=== PATIENT | male | born 1940 | race Caucasian/White ===

== ENCOUNTER 2018-12-22 18:14 | Emergency (ER) | payer MEDICARE, OTHER ==
[2018-12-22 18:42] LABS: ABS Basophils 0.1 10^3/ul (0-0.2); ABS Eosinophils 0.6 10^3/ul (0-0.6); ABS Lymphocytes 2.1 10^3/ul (1.0-4.8); Eosinophil % 6.5 %; Hematocrit 40 % (42-52); Hemoglobin 13.1 g/dL (14.0-18.0); Lymphocyte % 23.5 %; Mean Corpuscular HGB Conc 33 g/dL (31-36); Mean Corpuscular Hemoglobin 32 pg (27-31); Mean Corpuscular Volume 96 fL (80-94); Mean Platelet Volume 8.3 fL (7.4-10.4); Nucleated Red Blood Cells % 0.1; Platelet Count 287 10^3/uL (150-450); Red Blood Count 4.13 10^6 /uL (4.18-5.48); Red Cell Distribution Width 15 % (10-15); White Blood Count 8.8 10^3/uL (3.5-10.8)
--- OUTSIDE RECORDS SUMMARY | 2018-12-22 18:52 | XMS REPORT | Continuity of Care Document ---
:1940 External Reference #:[id number] Demographics Phone Unavailable Preferred Language Unknown Marital Status Unknown Jehovah'S Witness Affiliation Unknown Race Unknown Ethnic Group Unknown Author Name Bill Pyle M.D. (transmitted by agent of provider Mary Perla ) Address [address] [place] [address] [place] [address] Problems Description No Information Available Social History Type Date Description Comments Sex Unknown Allergies, Adverse Reactions, Alerts Description No Information Available Medications Description No Information Available Immunizations Description No Information Available Vital Signs Description No Information Available Results Description No Information Available Procedures Description No Information Available Medical Devices Description No Information Available Encounters Description No Information Available Assessments Description No Information Available Plan of Treatment No Information Available Functional Status Description No Information Available Mental Status Description No Information Available Referrals Description No Information Available
[2018-12-22 18:57] LABS: Albumin 3.7 g/dL (3.2-5.2); Calcium 8.8 mg/dL (8.6-10.3); Magnesium 1.7 mg/dL (1.9-2.7); Potassium 3.8 mmol/L (3.5-5.0); Total Bilirubin 0.6 mg/dL (0.2-1.0)
[2018-12-22 19:03] LABS: BUN/Creatinine Ratio 15.1 (8-20); EGFR African American 53.7 (>60); EGFR Non-African American 44.3 (>60); Globulin 3.6 g/dL (2-4); Total Protein 7.3 g/dL (6.4-8.9)
[2018-12-22 19:04] LABS: Troponin I 0.01 ng/mL (<0.04)
[2018-12-22] MEDS ORDERED: NS 0.9% 500 ML* 500 ML IV ONE (19:10)
[2018-12-22 19:28] LABS: TSH (Thyroid Stimulating Horm) 2.34 mcIU/mL (0.34-5.60)
[2018-12-22 21:23] LABS: Urine Appearance Clear; Urine Bilirubin Negative (Negative); Urine Blood Negative (Negative); Urine Color Yellow; Urine Glucose Negative (Negative); Urine Ketones Negative (Negative); Urine Nitrite Negative (Negative); Urine Protein Negative (Negative); Urine Specific Gravity 1.009 (1.010-1.030); Urine Urobilinogen Negative (Negative)
--- NOTE | 2018-12-22 22:14 | ED ---
Syncope/Near Syncope - HPI Summary HPI Summary: This patient is a 78 year old M arriving via ambulance to [facility] accompanied by with a chief complaint of syncope with LOC since 1734. Patient states that he was getting his blood drawn at Dr. David's office when he looked at the needle and passed out. Patient states that he experienced LOC. The patient rates the pain 0/10 in severity. Symptoms aggravated by nothing. Symptoms alleviated by nothing. Patient denies CP, melena and fever. Allergies Allergy/AdvReac Type Severity Reaction Status Date / Time No Known Allergies Allergy Verified 12/22/18 18:18 Home Medications Medication Instructions Recorded Confirmed Type Acetaminophen TAB* [Tylenol TAB*] 650 mg PO Q6H PRN tab 11/19/18 12/22/18 Rx Apixaban* [Eliquis*] 10 mg PO BID #71 tab 11/19/18 12/22/18 Rx Hydrochlorothiazide TAB* 25 mg PO DAILY 12/22/18 12/22/18 History [Hydrodiuril TAB*] Metoprolol Succinate XL TAB* 50 mg PO DAILY 12/22/18 12/22/18 History [Toprol XL TAB*] Patient Problems Acute pulmonary embolism (Acute) Community acquired bacterial pneumonia (Acute) DVT prophylaxis (Acute) Deep vein thrombosis (Acute) Fatigue (Acute) Full code status (Acute) HTN (hypertension) (Acute) Procedures Procedure Code Date COLONOSCOPY 45.23 10/24/99 - History Of Current Complaint Chief Complaint: EDSyncope Time Seen by Provider: 12/22/18 18:19 Hx Obtained From: Patient Onset/Duration: Sudden Onset Timing: Seconds Context: Witnessed, Loss Of Consciousness Activity At Onset: Other - Blood drawing Associated Head Trauma: No Aggravating Factor(s): Nothing Alleviating Factor(s): Nothing - Allergies/Home Medications Allergies/Adverse Reactions: Allergies Allergy/AdvReac Type Severity Reaction Status Date / Time No Known Allergies Allergy Verified 12/22/18 18:18 Home Medications: Home Medications Hydrochlorothiazide TAB* [Hydrodiuril TAB*] 25 mg PO DAILY 12/22/18 [History Confirmed 12/22/18] Metoprolol Succinate XL TAB* [Toprol XL TAB*] 50 mg PO DAILY 12/22/18 [History Confirmed 12/22/18] PMH/Surg Hx/FS Hx/Imm Hx Endocrine/Hematology History: Denies: Hx Diabetes Cardiovascular History: Reports: Hx Hypertension History: Denies: Hx Renal Disease Musculoskeletal History: 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 Sensory History: Denies: Hx Contacts or Glasses, Hx Legally Blind, Hx Deafness, Hx Hearing Aid Opthamlomology History: Denies: Hx Contacts or Glasses, Hx Legally Blind - Surgical History Surgical History: Yes Surgery Procedure, Year, and Place: colonoscopy Infectious Disease History: No Infectious Disease History: Denies: Traveled Outside the [place] in Last 30 Days - Family History Known Family History: Positive: Hypertension - Social History Alcohol Use: Weekly Hx Substance Use: No Substance Use Type: Reports: None Hx Tobacco Use: No Smoking Status (MU): Never Smoked Tobacco Review of Systems Negative: Fever Negative: Chest Pain Negative: Other - melena All Other Systems Reviewed And Are Negative: Yes Physical Exam - Summary Physical Exam Summary: Constitutional: Well-developed, Well-nourished, Alert. (-) Distressed Skin: Warm, Dry HENT: Normocephalic; Atraumatic Eyes: Conjunctiva normal Neck: Musculoskeletal ROM normal neck. (-) JVD, (-) Stridor, (-) Tracheal deviation Cardio: Rhythm regular, rate normal, Heart sounds normal; Intact distal pulses; The pedal pulses are 2+ and symmetric. Radial pulses are 2+ and symmetric. (-) Murmur Pulmonary/Chest wall: Effort normal. (-) Respiratory distress, (-) Wheezes, (-) Rales Abd: Soft, (-) tenderness, (-) Distension, (-) Guarding, (-) Rebound Musculoskeletal: (-) Edema Lymph: (-) Cervical adenopathy Neuro: Alert, Oriented x3 Psych: Mood and affect Normal Triage Information Reviewed: Yes Vital Signs On Initial Exam: Initial Vitals Temp Pulse Resp BP Pulse Ox 97.3 F 80 14 150/59 100 12/22/18 18:15 12/22/18 18:15 12/22/18 18:15 12/22/18 18:15 12/22/18 18:15 Vital Signs Reviewed: Yes Diagnostics - Vital Signs Vital Signs Temp Pulse Resp BP Pulse Ox 12/22/18 19:00 70 16 170/111 98 12/22/18 18:44 42 23 170/87 100 12/22/18 18:28 15 12/22/18 18:15 97.3 F 80 14 150/59 100 - Laboratory Lab Results: Lab Results 12/22/18 12/22/18 12/22/18 Range/Units 18:37 18:37 18:37 WBC 8.8 (3.5-10.8) 10^3/uL RBC 4.13 L (4.18-5.48) 10^6 /uL Hgb 13.1 L (14.0-18.0) g/dL Hct 40 L (42-52) % MCV 96 H (80-94) fL MCH 32 H (27-31) pg MCHC 33 (31-36) g/dL RDW 15 (10-15) % Plt Count 287 (150-450) 10^3/uL MPV 8.3 (7.4-10.4) fL Neut % (Auto) 57.2 % Lymph % (Auto) 23.5 % [place] % (Auto) 11.5 % Eos % (Auto) 6.5 % Baso % (Auto) 1.3 % Absolute Neuts (auto) 5.0 (1.5-7.7) 10^3/ul Absolute Lymphs (auto) 2.1 (1.0-4.8) 10^3/ul Absolute Monos (auto) 1.0 H (0-0.8) 10^3/ul Absolute Eos (auto) 0.6 (0-0.6) 10^3/ul Absolute Basos (auto) 0.1 (0-0.2) 10^3/ul Absolute Nucleated RBC 0.0 10^3/ul Nucleated RBC % 0.1 Sodium 139 (135-145) mmol/L Potassium 3.8 (3.5-5.0) mmol/L Chloride 107 (101-111) mmol/L Carbon Dioxide 23 (22-32) mmol/L Anion Gap 9 (2-11) mmol/L BUN 23 (6-24) mg/dL Creatinine 1.52 H (0.67-1.17) mg/dL Est GFR ( Amer) 53.7 (>60) Est GFR (Non-Af Amer) 44.3 (>60) BUN/Creatinine Ratio 15.1 (8-20) Glucose 101 H (70-100) mg/dL Lactic Acid 2.1 H* (0.5-2.0) mmol/L Calcium 8.8 (8.6-10.3) mg/dL Magnesium 1.7 L (1.9-2.7) mg/dL Total Bilirubin 0.60 (0.2-1.0) mg/dL AST 21 (13-39) U/L ALT 15 (7-52) U/L Alkaline Phosphatase 80 (34-104) U/L Troponin I 0.01 (<0.04) ng/mL Total Protein 7.3 (6.4-8.9) g/dL Albumin 3.7 (3.2-5.2) g/dL Globulin 3.6 (2-4) g/dL Albumin/Globulin Ratio 1.0 (1-3) TSH 2.34 (0.34-5.60) mcIU/mL Urine Color Urine Appearance Urine pH (5-9) Ur Specific [place] (1.010-1.030) Urine Protein (Negative) Urine Ketones (Negative) Urine Blood (Negative) Urine Nitrate (Negative) Urine Bilirubin (Negative) Urine Urobilinogen (Negative) Ur Leukocyte Esterase (Negative) Urine Glucose (Negative) 12/22/18 12/22/18 Range/Units 21:08 21:37 WBC (3.5-10.8) 10^3/uL RBC (4.18-5.48) 10^6 /uL Hgb (14.0-18.0) g/dL Hct (42-52) % MCV (80-94) fL MCH (27-31) pg MCHC (31-36) g/dL RDW (10-15) % Plt Count (150-450) 10^3/uL MPV (7.4-10.4) fL Neut % (Auto) % Lymph % (Auto) % [place] % (Auto) % Eos % (Auto) % Baso % (Auto) % Absolute Neuts (auto) (1.5-7.7) 10^3/ul Absolute Lymphs (auto) (1.0-4.8) 10^3/ul Absolute Monos (auto) (0-0.8) 10^3/ul Absolute Eos (auto) (0-0.6) 10^3/ul Absolute Basos (auto) (0-0.2) 10^3/ul Absolute Nucleated RBC 10^3/ul Nucleated RBC % Sodium (135-145) mmol/L Potassium (3.5-5.0) mmol/L Chloride (101-111) mmol/L Carbon Dioxide (22-32) mmol/L Anion Gap (2-11) mmol/L BUN (6-24) mg/dL Creatinine (0.67-1.17) mg/dL Est GFR ( Amer) (>60) Est GFR (Non-Af Amer) (>60) BUN/Creatinine Ratio (8-20) Glucose (70-100) mg/dL Lactic Acid (0.5-2.0) mmol/L Calcium (8.6-10.3) mg/dL Magnesium (1.9-2.7) mg/dL Total Bilirubin (0.2-1.0) mg/dL AST (13-39) U/L ALT (7-52) U/L Alkaline Phosphatase (34-104) U/L Troponin I 0.01 (<0.04) ng/mL Total Protein (6.4-8.9) g/dL Albumin (3.2-5.2) g/dL Globulin (2-4) g/dL Albumin/Globulin Ratio (1-3) TSH (0.34-5.60) mcIU/mL Urine Color Yellow Urine Appearance Clear Urine pH 6.0 (5-9) Ur Specific [place] 1.009 L (1.010-1.030) Urine Protein Negative (Negative) Urine Ketones Negative (Negative) Urine Blood Negative (Negative) Urine Nitrate Negative (Negative) Urine Bilirubin Negative (Negative) Urine Urobilinogen Negative (Negative) Ur Leukocyte Esterase Negative (Negative) Urine Glucose Negative (Negative) Result Diagrams: 12/22/18 18:37 12/22/18 18:37 Lab Statement: Any lab studies that have been ordered have been reviewed, and results considered in the medical decision making process. Course/Dx Course Of Treatment: This patient is a 78 year old M arriving via ambulance to [facility] accompanied by with a chief complaint of syncope with LOC since 173. Test results with no significant abnormalities except for RBC 4.13, Hgb 13.1, Hct 40, Absolute Monos 1.0, Creatinine 1.52, Glucose 101, Lactic Acid 2.1 , Magnesium 1.7, Ur Specific [place] 1.009. Patient will be discharged home and follow up with PCP. Patient is agreeable with this plan. - Diagnoses Provider Diagnoses: Vasovagal syncope Discharge ED - Sign-Out/Discharge Documenting (check all that apply): Patient Departure - discharge Patient Received Moderate/Deep Sedation with Procedure: No - Discharge Plan Condition: Stable Disposition: HOME Patient Education Materials: Syncope (ED) Referrals: Leslie David MD [Primary Care Provider] - 2 Days Additional Instructions: RETURN TO ER FOR CHANGING/WORSENING SYMPTOMS - Attestation Statements Document Initiated by Scribe: Yes Documenting Scribe: Marion Bowles Provider For Whom Scribe is Documenting (Include Credential): Dr. Chase Green MD Scribe Attestation: Marion Alejandra scribed for Dr. Chase Green MD on 12/22/18 at 2221. Status of Scribe Document: Ready
[2018-12-22 22:35] VITALS: BP 155/81
== END 2018-12-22 22:30 | disposition home or self-care (01) ==
LOC: ED 18:14
DX: R55 Syncope and collapse (principal); I10 Essential (primary) hypertension; Z79.01 Long term (current) use of anticoagulants; Z79.899 Other long term (current) drug therapy; Z86.711 Personal history of pulmonary embolism; Z86.718 Personal history of other venous thrombosis and embolism
CPT/HCPCS: 36415; 80053; 81003; 83605; 83735; 84443; 84484; 85025; 93005; 99283